=== PATIENT | female | born 1965 | race Hispanic/Latino ===

== ENCOUNTER 2024-05-25 12:45 | Emergency (ER) | payer OTHER ==
[~2024-05-25] VITALS: Ht 162.6 cm; Wt 104.3 kg
[2024-05-25 13:23] VITALS: PULSE 76; RESP 15; TEMP 98; O2SAT 99
== END 2024-05-25 17:10 | disposition home or self-care (01) ==
LOC: ER 15:14
DX: S00.83XA Contusion of other part of head, initial encounter (principal); W18.39XA Other fall on same level, initial encounter; Y93.01 Activity, walking, marching and hiking; Y92.89 Other specified places as the place of occurrence of the external cause; I10 Essential (primary) hypertension; M19.09 Primary osteoarthritis, other specified site
CPT/HCPCS: 70450; 99283